=== PATIENT | male | born 1955 ===

== ENCOUNTER 2016-12-09 07:14 | Emergency (ER) | payer MEDICAID ==
[2016-12-09 07:14] VITALS: BMI 22.8
[2016-12-09 07:21] VITALS: BP 156/98; PULSE 70; RESP 18; TEMP 98; O2SAT 96
[2016-12-09] MEDS ORDERED: Oxycodone/Acetaminophen 5/325 mg Tab PO STA (07:51)
--- NOTE | 2016-12-09 07:57 | C.PDOC ---
History Of Present Illness Patient reports pain in right shoulder S/P recent right shoulder fracture and scheduled for surgery in next week ran out of pain medication. Patient reports he was taking percocet and toradol . no fever, Time Seen by Provider: 12/09/16 07:31 Chief Complaint (Nursing): Upper Extremity Problem/Injury History Per: Patient History/Exam Limitations: no limitations Onset/Duration Of Symptoms: Days Current Symptoms Are (Timing): Still Present Quality: Dull Severity: Mild Exacerbating Factor(s): Movement Recent travel outside of the [facility]: No Past Medical History Reviewed: Historical Data, Nursing Documentation, Vital Signs Vital Signs: Last Vital Signs Temp 98.0 F 12/09/16 07:19 Pulse 70 12/09/16 07:19 Resp 18 12/09/16 07:19 BP 156/98 H 12/09/16 07:19 Pulse Ox 96 12/09/16 08:07 - Medical History PMH: Arthritis, Diabetes, Diverticulitis, HTN, Hypercholesterolemia, Hyperlipidemia, Osteoporosis Surgical History: Cholecystectomy - [facility] Procedures CYSTOSCOPY NEC (09/27/12) RETROGRADE PYELOGRAM (09/27/12) Family History: States: Unknown Family Hx - Social History Hx Tobacco Use: No Hx Alcohol Use: No Hx Substance Use: No - Immunization History Hx Tetanus Toxoid Vaccination: No Hx Influenza Vaccination: Yes Hx Pneumococcal Vaccination: No Review Of Systems Constitutional: Negative for: Fever Musculoskeletal: Positive for: Shoulder Pain (right) Physical Exam - Physical Exam Appears: Well, Non-toxic Neck: Normal Cardiovascular: Rhythm Regular Respiratory: Normal Breath Sounds Extremity: Right: Other (right shoulder tender lateral, decrease rom due to pain ) Neurological/Psych: Oriented x3 Gait: Steady ED Course And Treatment O2 Sat by Pulse Oximetry: 96 Pulse Ox Interpretation: Normal Progress Note: Treated with toradol and percocet. On re-evaluation feeling better, requesting discharge Reassessment Condition: Improved Disposition - Disposition Disposition: HOME/ ROUTINE Disposition Time: 09:15 Condition: IMPROVED Additional Instructions: Follow up with your PMD and ortho for further evaluation Prescriptions: oxyCODONE/Acetaminophen [Percocet 5/325 mg Tab] 1 tab PO QID PRN #10 tab PRN Reason: Pain Instructions: Shoulder Pain (ED) - POA Present On Arrival: None - Clinical Impression Clinical Impression: Shoulder pain, right
[2016-12-09] MEDS ORDERED: Oxycodone/Acetaminophen 5/325 mg Tab ONE (07:59)
== END 2016-12-09 08:30 | disposition home or self-care (01) ==
LOC: C.ER 07:14
DX: M25.511 Pain in right shoulder (principal)
CPT/HCPCS: 96372; 99284; J1885

== ENCOUNTER 2017-01-31 15:06 | Emergency (ER) | payer MEDICAID, OTHER ==
[2017-01-31 15:06] VITALS: BMI 22.8
[2017-01-31 16:15] VITALS: RESP 16; O2SAT 98
--- NOTE | 2017-01-31 16:25 | C.PDOC ---
History Of Present Illness 01/31/2017 61 y/o male, whose PMH includes right shoulder surgery for tendon repair 2 weeks ago, presents to the ED complaining of right shoulder pain becoming worse after he began physical therapy last week. Patient notes taking two Motrin's yesterday with no relief, and sts the pain is much worse today. Patient denies any fever, SOB, CP, headache, or other complaints. no numbness or tingling. Time Seen by Provider: 01/31/17 15:51 Chief Complaint (Nursing): Upper Extremity Problem/Injury History Per: Patient History/Exam Limitations: no limitations Onset/Duration Of Symptoms: Days (last week), Worse Since (prior to arrival) Past Medical History Reviewed: Historical Data, Nursing Documentation, Vital Signs Vital Signs: Last Vital Signs Temp 97.7 F 01/31/17 17:35 Pulse 92 H 01/31/17 17:35 Resp 16 01/31/17 17:35 BP 169/98 H 01/31/17 18:17 Pulse Ox 98 02/02/17 12:04 - Medical History PMH: Arthritis, Diabetes, Diverticulitis, HTN, Hypercholesterolemia, Hyperlipidemia, Osteoporosis Surgical History: Cholecystectomy - [facility] Procedures CYSTOSCOPY NEC (09/27/12) RETROGRADE PYELOGRAM (09/27/12) Family History: States: Unknown Family Hx - Social History Hx Tobacco Use: No Hx Alcohol Use: No Hx Substance Use: No - Immunization History Hx Tetanus Toxoid Vaccination: Yes Hx Influenza Vaccination: Yes Hx Pneumococcal Vaccination: Yes Review Of Systems Constitutional: Negative for: Fever Cardiovascular: Negative for: Chest Pain Respiratory: Negative for: Shortness of Breath Gastrointestinal: Negative for: Abdominal Pain Musculoskeletal: Positive for: Shoulder Pain (right shoulder pain ) Physical Exam - Physical Exam Appears: Well, Non-toxic, No Acute Distress Skin: Normal Color, Warm, Dry Extremity: No Normal ROM (limited range of motion right shoulder), Tenderness ( right shoulder anterior tenderness, no erythema, swelling or warmth noted), Other (FROM wrist, hand, and elbow) Neurological/Psych: Oriented x3, Normal Speech, Normal Motor Gait: Steady ED Course And Treatment O2 Sat by Pulse Oximetry: 98 (room air) Pulse Ox Interpretation: Normal Medical Decision Making Medical Decision Makin01/31/2017 Impression: 61 y/o male with limited range of motion on right shoulder and anterior tenderness. FROM of wrist, hand, and elbow. Plan: -- Right shoulder x-ray -- Toradol -- Reassess and disposition Progress Notes: 459 pm pt reports he is ready to go home, xray neg. will d/c with nsaids and ortho f/u pt 's bp found to be 172/117; pt did not take his htn medication today. pt denies cp , sob, headache. pt reviewed on [place] aware; pt has been prescribed 195 tabs oxycodone/apap prescribed between 12/21/16 and 01/21/17, made aware I am unable to prescribe any more medication. 617 pm pt withj decreased pain after toradol. bp decreased slightly; pt is asymptomatic with no cp,sob, dizziness or headache. will d/c with nsaids and ortho follow up, pmd f/u for bp check Disposition - Disposition Disposition: HOME/ ROUTINE Disposition Time: 18:18 Condition: IMPROVED Additional Instructions: Follow up with your orthopedist as soon as possible and with your medical doctor to check your blood pressure. It is recommended to take your blood pressure at the same time everyday. Take ibuprofen as prescribed for pain. Prescriptions: Ibuprofen [Motrin] 600 mg PO TID #30 tab Instructions: Hypertension (ED), Shoulder Pain (ED) Forms: Gen Discharge Inst Bermudian, [facility] (Bermudian) Print Language: CAMEROONIAN - Clinical Impression Clinical Impression: Shoulder pain, right, Hypertension - Scribe Statement The provider has reviewed the documentation as recorded by the Scribe 01/31/2017 Scribe Attestation: Gretta Valdes MD Scribe Attestation: All medical record entries made by the Scribe were at my direction and personally dictated by me. I have reviewed the chart and agree that the record accurately reflects my personal performance of the history, physical exam, medical decision making, and the department course for this patient. I have also personally directed, reviewed, and agree with the discharge instructions and disposition.
--- NOTE | 2017-01-31 17:21 | RAD ---
PROCEDURE: Radiographs of the Right Shoulder HISTORY: s/p surgery, pain ant shoulder COMPARISON: 01/13/2017. FINDINGS: BONES: No acute fractures. JOINTS: Preserved glenohumeral relationship, acromioclavicular degenerative change: Mild possible findings related to prior acromioplasty. SOFT TISSUES: Normal. OTHER FINDINGS: None. IMPRESSION: No acute findings related to/accounting for the clinical presentation. Presumed postoperative changes accounting for differences compared to the prior study 01/14/2016. Concordant results with the preliminary interpretation rendered by the emergency department physician procedure.
[2017-01-31 17:36] VITALS: PULSE 92; TEMP 97.7
[2017-01-31 18:17] VITALS: BP 169/98
== END 2017-01-31 18:32 | disposition home or self-care (01) ==
LOC: C.ER 15:06
DX: M25.511 Pain in right shoulder (principal); I10 Essential (primary) hypertension
CPT/HCPCS: 73030; 96372; 99284; J1885